=== PATIENT | female | born 1990 | race African-American/Black ===

== ENCOUNTER 2016-08-26 22:51 | Emergency (ER) | payer MEDICAID, OTHER ==
[~2016-08-26] VITALS: Ht 170.2 cm; Wt 68.2 kg
[2016-08-26 23:30] VITALS: BP 126/76
[2016-08-26] MEDS ORDERED: LORAZEPAM 1MG TABLET PO ONE (23:30)
[2016-08-26 23:55] LABS: BASOPHILS % 0.7 % (0.0-2.0); DIFFERENTIAL COMMENT 0; EOSINOPHILS % 0.6 % (0.0-5.0); HEMATOCRIT. 41.3 % (36.0-48.0); HEMOGLOBIN. 13.5 g/dL (12.0-16.0); LYMPHOCYTES % 22.1 % (20.0-50.0); MEAN CORPUSCULAR HEMOGLOBIN 24.8 pg (28.0-32.0); MEAN CORPUSCULAR HGB CONC 32.7 g/dL (31.0-37.0); MEAN CORPUSCULAR VOLUME 75.7 fL (81.0-99.0); MONOCYTES % 5.5 % (2.0-8.0); NEUTROPHILS % 71.1 % (40.0-76.0); PLATELET 213 x1000/uL (130-400); RED BLOOD CELL COUNT 5.45 mill/uL (4.2-5.4); RED CELL DISTRIBUTION WIDTH 14.8 % (11.6-14.6); WHITE BLOOD COUNT 10.1 x1000/uL (4.5-11.0)
[2016-08-27] LABS: CHLORIDE 104 mEq/L (98-107); HCG SCREEN NEGATIVE; INDEX HEMOLYSI 1 (1-3); INDEX ICTERIC 1 (1-4); INDEX LIPEMIC 1 (1-3)
[2016-08-27 00:10] LABS: ALANINE AMINOTRANSFERASE 19 IU/L (13-61); ALBUMIN 4.1 g/dL (3.4-5.0); ANION GAP 14; CALCIUM 9.1 mg/dL (8.5-10.1); CARBON DIOXIDE 26 mEq/L (21-32); UREA NITROGEN BLOOD 12 mg/dL (7-21); eGFR > 60 mL/min (>60)
== END 2016-08-27 02:00 | disposition home or self-care (01) ==
LOC: ER 22:51
DX: F41.0 Panic disorder [episodic paroxysmal anxiety] (principal); F41.9 Anxiety disorder, unspecified; R20.0 Anesthesia of skin; R00.2 Palpitations; R42 Dizziness and giddiness; R20.2 Paresthesia of skin; R51 Headache; R11.0 Nausea; F17.200 Nicotine dependence, unspecified, uncomplicated
CPT/HCPCS: 36415; 71010; 80053; 84703; 85025; 93005; 99285; Z7610